=== PATIENT | female | born 1980 | race Two or more races ===

== ENCOUNTER 2017-08-23 22:00 | Emergency (ER) | payer SELFPAY ==
[~2017-08-23] VITALS: Ht 172.7 cm; Wt 61.2 kg
[2017-08-23 22:12] VITALS: BP 134/86
== END 2017-08-24 01:48 | disposition home or self-care (01) ==
LOC: ER 22:00
DX: M62.838 Other muscle spasm (principal); M54.2 Cervicalgia; R51 Headache
CPT/HCPCS: 70450; 72125; 73562